=== PATIENT | female | born 1985 | race Hispanic/Latino ===

== ENCOUNTER 2016-05-18 15:24 | Day surgery (SDC) | payer OTHER, BC ==
[2016-05-18 15:32] VITALS: BMI 26.5
[2016-05-18] MEDS ORDERED: Indomethacin 50 MG Suppository PR ONE (15:43)
[2016-05-18] MEDS ORDERED: Iohexol 240 (50 ml) ONE (15:44)
[2016-05-18] MEDS ORDERED: Propofol 10 mg/ml Inj (20 ML) ONE (17:41)
[2016-05-18] MEDS ORDERED: Midazolam 2 MG/2 ML VIAL ONE (17:41)
[2016-05-18] MEDS ORDERED: Succinylcholine 200 mg/10 ml Inj IV ONE (17:42)
[2016-05-18] MEDS ORDERED: Glucagon Recombinant 1 mg Inj ONE (18:42)
[2016-05-18 19:42] VITALS: TEMP 98
[2016-05-18 20:04] VITALS: RESP 18; O2SAT 99
[2016-05-18 20:05] VITALS: BP 140/86; PULSE 59
--- NOTE | 2016-06-29 15:37 | RAD ---
PROCEDURE: ERCP HISTORY: ? CBD OBST COMPARISON: TECHNIQUE: FLUOROSCOPY WAS PROVIDED IN THE ENDOSCOPY SUITE. 2 MINUTES AND 40 SECONDS OF FLUOROSCOPY TIME WERE UTILIZED. FIVE IMAGES WERE SUBMITTED FINDINGS: THE STUDY SHOWS PLACEMENT OF A WIRE AND PASSAGE OF A BALLOON CATHETER IN THE COMMON DUCT IMPRESSION: ABOVE
== END 2016-05-18 20:06 | disposition home or self-care (01) ==
LOC: ENDO 15:24
PROVIDERS: ATTEND Internal Medicine
DX: K80.50 Calculus of bile duct without cholangitis or cholecystitis without obstruction (principal); K29.70 Gastritis, unspecified, without bleeding; K26.9 Duodenal ulcer, unspecified as acute or chronic, without hemorrhage or perforation
CPT/HCPCS: 43242; 43262; 47539; 47544; 74330; 84703; 88305; 88342; J0171; J0330; J1610; J1885; J2250; J2405; J2704; J3010; J7030; Q9966